=== PATIENT | female | born 2000 | race African-American/Black ===

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

== ENCOUNTER 2022-04-05 07:00 | Inpatient (IN) | payer OTHER ==
[2022-04-05] MEDS ORDERED: BUTORPHANOL TARTRATE 1 MG/ML VIAL IVPUSH ONE ×2 (08:16→21:27)
[2022-04-05] MEDS ORDERED: PROMETHAZINE HCL 25 MG/1 ML VIAL IVPB ONE ×2 (08:16→21:27)
[2022-04-05] MEDS ORDERED: OXYTOCIN 30 UNITS in 0.9% NS 30 UNIT/500 ML INFUS.BAG IVPB SCH (08:45)
[2022-04-05 09:22] LABS: BASO % 0.1 % (0-2.0); HEMATOCRIT 31.3 % (32.4-45.2); HEMOGLOBIN 10.6 GM/dL (10.7-15.3); LYMPH % 21.4 % (8-40); MCHC 33.8 g/dl (32.0-36.0); MEAN CELL VOLUME 85.8 fl (80-96); MEAN PLT VOLUME 8.3 fl (7.5-11.1); MONO % 5.5 % (3.8-10.2); PLATELET COUNT 210 10^3/uL (134-434); RBC 3.65 M/mm3 (3.60-5.2); RDW 14.6 % (11.6-15.6); WHITE BLOOD COUNT 7.6 K/mm3 (4.0-10.0)
[2022-04-05 09:27] LABS: INR 0.98 (0.83-1.09); PROTHROMBIN TIME (PATIENT) 11.4 SEC (9.7-13.0)
[2022-04-05 09:28] LABS: INR 0.97 (0.83-1.09); PROTHROMBIN TIME (PATIENT) 11.3 SEC (9.7-13.0)
[2022-04-05 09:29] VITALS: BMI 44.4
[2022-04-05 09:30] LABS: ACTIVATED PTT 28.5 SECONDS (25.2-36.5)
[2022-04-05 09:49] LABS: CALCIUM 8.9 mg/dL (8.5-10.1)
[2022-04-05 09:50] LABS: BLOOD UREA NITROGEN 6.8 mg/dL (7-18)
[2022-04-05 09:53] LABS: CREATININE 0.5 mg/dL (0.55-1.3)
[2022-04-05] MEDS ORDERED: OXYTOCIN 30 UNITS in 0.9% NS 30 UNIT/500 ML INFUS.BAG IVPB ONE (10:09)
[2022-04-05] MEDS: DEXTROSE 5%-LACTATED RINGERS 1,000 ML IV SCH ×2 (10:30→17:30)
[2022-04-05] MEDS ORDERED: PROMETHAZINE HCL 25 MG/1 ML VIAL ONE ×2 (19:10→21:31)
[2022-04-05] MEDS ORDERED: BUTORPHANOL TARTRATE 2 MG/ML VIAL ONE ×2 (19:10→21:30)
[2022-04-05] MEDS ORDERED: FENTANYL/BUPIVACAINE/NS/PF - PCEA - 50 ML DISP.SYRIN EP ONE (21:14)
[2022-04-05] MEDS ORDERED: OXYTOCIN 20 UNITS in 0.9% NS 20 UNIT/1,000 ML INFUS.BAG IV ONE (23:08)
[2022-04-05] MEDS ORDERED: BISACODYL 10 MG SUPP.RECT RC PRN (23:43)
[2022-04-05] MEDS ORDERED: WITCH HAZEL 50% (TUCKS) 40 PAD/JAR PAD TP PRN (23:43)
[2022-04-05] MEDS ORDERED: BENZOCAINE 28 GM HEMORRHOIDAL OINTMENT TP PRN (23:43)
[2022-04-05] MEDS ORDERED: METHYLERGONOVINE MALEATE 0.2 MG/1 ML AMP IM PRN (23:43)
[2022-04-05] MEDS ORDERED: ACETAMINOPHEN 325 MG TABLET (FP) PO PRN (23:43)
[2022-04-05] MEDS ORDERED: IBUPROFEN 600 MG TABLET (FP) PO PRN (23:43)
[2022-04-05] MEDS ORDERED: BENZOCAINE 20% 57 GM BOTTLE TP PRN (23:43)
[2022-04-05] MEDS ORDERED: oxyCODONE HCL 5 MG TABLET PO PRN (23:43)
[2022-04-05] MEDS ORDERED: OXYTOCIN 20 UNITS in 0.9% NS 20 UNIT/1,000 ML INFUS.BAG IV SCH (23:45)
[2022-04-06 00:24] LABS: CORD BASE EXCESS -7.6 mmol/L (0-2); CORD HCO3 20.5 mmHg (20-29); CORD PCO2 52.1 mmHg (30-78); CORD pH 7.213 (7.14-7.44)
[2022-04-06 00:26] LABS: CORD BASE EXCESS -5.8 mmol/L (0-2); CORD HCO3 19.8 mmHg (20-29); CORD PCO2 39.3 mmHg (30-78); CORD pH 7.32 (7.14-7.44)
[2022-04-06 09:41] LABS: BASO % 0.3 % (0-2.0); EOS % 0.2 % (0-4.5); HEMATOCRIT 30.2 % (32.4-45.2); HEMOGLOBIN 9.9 GM/dL (10.7-15.3); LYMPH % 14.7 % (8-40); MCH 28.1 pg (25.7-33.7); MCHC 32.8 g/dl (32.0-36.0); MEAN CELL VOLUME 85.9 fl (80-96); MEAN PLT VOLUME 8.3 fl (7.5-11.1); MONO % 8.2 % (3.8-10.2); NEUT % 76.6 % (42.8-82.8); PLATELET COUNT 231 10^3/uL (134-434); RBC 3.51 M/mm3 (3.60-5.2); RDW 14.8 % (11.6-15.6); WHITE BLOOD COUNT 13.9 K/mm3 (4.0-10.0)
[2022-04-06 21:28] VITALS: RESP 18
[2022-04-06] MEDS ORDERED: SENNOSIDES/DOCUSATE COMBO (SENNA PLUS) TABLET (UD) PO PRN (22:00)
[2022-04-07 10:10] VITALS: BP 133/69; PULSE 93; TEMP 97.7
== END 2022-04-07 12:05 | disposition home or self-care (01) | DRG 560 ==
LOC: JLDR 07:00 → J3W 04-06 01:45
PROVIDERS: ADMIT Obstetrics & Gynecology; ATTEND Obstetrics & Gynecology
PROC: 10E0XZZ Delivery of Products of Conception, External Approach (ICD-10-PCS; principal; 2022-04-05)
PROC: 3E033VJ Introduction of Other Hormone into Peripheral Vein, Percutaneous Approach (ICD-10-PCS; 2022-04-05)
PROC: 10907ZC Drainage of Amniotic Fluid, Therapeutic from Products of Conception, Via Natural or Artificial Opening (ICD-10-PCS; 2022-04-05)
DX: O48.0 Post-term pregnancy (principal); Z37.0 Single live birth; O99.214 Obesity complicating childbirth; E66.01 Morbid (severe) obesity due to excess calories; Z3A.40 40 weeks gestation of pregnancy
CPT/HCPCS: 36415; 36600; 59409; 80048; 82803; 85025; 85610; 85730; 86480; 86780; 86850; 86900; 86901; C9803-CS; U0003; U0005

== ENCOUNTER 2023-07-06 15:51 | Emergency (ER) | payer OTHER ==
[2023-07-06 16:04] VITALS: BP 142/77; PULSE 71; RESP 18; TEMP 98; BMI 39.1
[2023-07-06] MEDS ORDERED: IBUPROFEN 600 MG TABLET (FP) PO ONE (16:55)
[2023-07-06] MEDS ORDERED: ACETAMINOPHEN 500 MG TABLET (FP) ONE (16:55)
[2023-07-06] MEDS: IBUPROFEN 600 MG TABLET (FP) PO ONE (16:57)
[2023-07-06] MEDS: ACETAMINOPHEN 500 MG TABLET (FP) PO ONE (16:58)
== END 2023-07-06 17:18 | disposition home or self-care (01) ==
LOC: JERFT 15:51
DX: M79.661 Pain in right lower leg (principal); M79.662 Pain in left lower leg; M25.472 Effusion, left ankle; M25.471 Effusion, right ankle
CPT/HCPCS: 84703; 99283-25

== ENCOUNTER 2024-04-13 06:55 | Inpatient (IN) | payer OTHER ==
[2024-04-13 08:09] VITALS: BMI 42.3
[2024-04-13] MEDS: ELECTROLYTE-148 SOLN 1,000 ML IV SCH (09:00)
[2024-04-13 09:04] LABS: HEMATOCRIT 35.6 % (32.4-45.2); HEMOGLOBIN 11.7 GM/dL (10.7-15.3); INR 0.94 (0.83-1.09); MCH 27.9 pg (25.7-33.7); MCHC 32.9 g/dl (32.0-36.0); MEAN CELL VOLUME 84.8 fl (80-96); MEAN PLT VOLUME 8.3 fl (7.5-11.1); PLATELET COUNT 238 10^3/uL (134-434); PROTHROMBIN TIME (PATIENT) 10.2 SEC (9.7-13.0); RDW 14.5 % (11.6-15.6); WHITE BLOOD COUNT 8.2 K/mm3 (4.0-10.0)
[2024-04-13 09:07] LABS: ACTIVATED PTT 24.7 SECONDS (25.2-36.5)
[2024-04-13 09:17] LABS: POTASSIUM 3.9 mmol/L (3.5-5.1)
[2024-04-13 09:18] LABS: CALCIUM 8.8 mg/dL (8.5-10.1)
[2024-04-13 09:19] LABS: BLOOD UREA NITROGEN 7.9 mg/dL (7-18)
[2024-04-13 09:22] LABS: CREATININE 0.7 mg/dL (0.55-1.3)
[2024-04-13] MEDS: DINOPROSTONE 10 MG VAGINAL SUPPOSITORY VG ONE (09:25)
[2024-04-13 10:18] LABS: BASO % 0.3 % (0-2.0); LYMPH % 20.1 % (8-40); MONO % 3.7 % (3.8-10.2); NEUT % 74.9 % (42.8-82.8)
[2024-04-13] MEDS ORDERED: PROMETHAZINE HCL 25 MG/1 ML VIAL ONE (13:08)
[2024-04-13] MEDS ORDERED: BUTORPHANOL TARTRATE 2 MG/ML VIAL ONE (13:08)
[2024-04-13] MEDS ORDERED: AMPICILLIN SODIUM 2 GM VIAL ONE (13:15)
[2024-04-13] MEDS: PROMETHAZINE HCL 25 MG/1 ML VIAL IVPB ONE (13:19)
[2024-04-13] MEDS: BUTORPHANOL TARTRATE 1 MG/ML VIAL IVPB ONE (13:20)
[2024-04-13 13:23] LABS: HIV INTERPRETATION NEGATIVE (NEGATIVE)
[2024-04-13] MEDS: AMPICILLIN - 2 GM in SODIUM CHLORIDE 100 ML IVPB ONE (14:00)
[2024-04-13] MEDS ORDERED: FENTANYL/BUPIVACAINE/NS/PF - PCEA - 50 ML DISP.SYRIN EP ONE ×2 (16:38→20:19)
[2024-04-13] MEDS ORDERED: AMPICILLIN SODIUM 1 GM VIAL ONE (16:49)
[2024-04-13] MEDS: FENTANYL/BUPIVACAINE/NS/PF - PCEA - 50 ML DISP.SYRIN EP SCH (17:05)
[2024-04-13] MEDS: AMPICILLIN - 1 GM in SODIUM CHLORIDE 100 ML IVPB SCH (17:29)
[2024-04-13] MEDS ORDERED: NALOXONE HCL 0.4 MG/ML VIAL IVPUSH PRN (18:17)
[2024-04-13] MEDS ORDERED: OXYTOCIN 20 UNITS in 0.9% NS 20 UNIT/1,000 ML INFUS.BAG IV ONE ×2 (20:51→22:12)
[2024-04-13] MEDS: METHYLERGONOVINE MALEATE 0.2 MG/1 ML AMP IM PRN (21:00)
[2024-04-13] MEDS: OXYTOCIN 20 UNITS in 0.9% NS 20 UNIT/1,000 ML INFUS.BAG IV SCH (21:00)
[2024-04-13] MEDS ORDERED: BISACODYL 10 MG SUPP.RECT RC PRN (21:08)
[2024-04-13] MEDS ORDERED: BENZOCAINE 28 GM HEMORRHOIDAL OINTMENT TP PRN (21:08)
[2024-04-13] MEDS ORDERED: WITCH HAZEL 50% (TUCKS) 40 PAD/JAR PAD TP PRN (21:08)
[2024-04-13] MEDS ORDERED: oxyCODONE HCL 5 MG TABLET PO PRN (21:08)
[2024-04-14] MEDS: IBUPROFEN 600 MG TABLET (FP) PO PRN (07:19)
[2024-04-14] MEDS: BENZOCAINE 20% 57 GM BOTTLE TP PRN (07:19)
[2024-04-14 07:37] LABS: BASO % 0.2 % (0-2.0); EOS % 0.4 % (0-4.5); HEMATOCRIT 28.2 % (32.4-45.2); HEMOGLOBIN 8.9 GM/dL (10.7-15.3); LYMPH % 18.1 % (8-40); MCH 27.1 pg (25.7-33.7); MCHC 31.7 g/dl (32.0-36.0); MEAN CELL VOLUME 85.6 fl (80-96); MEAN PLT VOLUME 8.1 fl (7.5-11.1); MONO % 7.9 % (3.8-10.2); NEUT % 73.4 % (42.8-82.8); PLATELET COUNT 206 10^3/uL (134-434); RDW 14.7 % (11.6-15.6); WHITE BLOOD COUNT 11.7 K/mm3 (4.0-10.0)
[2024-04-14] MEDS: PRENATAL VITAMINS W/ FOLIC ACID TABLET (FP) PO SCH (09:23)
[2024-04-14] MEDS: ACETAMINOPHEN 325 MG TABLET (FP) PO PRN (09:23)
[2024-04-14] MEDS ORDERED: SENNOSIDES/DOCUSATE COMBO (SENNA PLUS) TABLET (UD) PO PRN (22:00)
[2024-04-15 10:54] VITALS: BP 112/71; PULSE 89; RESP 20; TEMP 99
== END 2024-04-15 11:55 | disposition home or self-care (01) | DRG 560 ==
LOC: JLDR 06:55 → J3W 23:36
PROVIDERS: ADMIT Obstetrics & Gynecology; ATTEND Obstetrics & Gynecology
PROC: 10E0XZZ Delivery of Products of Conception, External Approach (ICD-10-PCS; principal; 2024-04-13)
DX: O99.213 Obesity complicating pregnancy, third trimester (principal); O12.14 Gestational proteinuria, complicating childbirth; O99.820 Streptococcus B carrier state complicating pregnancy; Z3A.39 39 weeks gestation of pregnancy; Z37.0 Single live birth
CPT/HCPCS: 36415; 59409; 80048; 85025; 85610; 85730; 86780; 86803; 86850; 86900; 86901; 87389